=== PATIENT | female | born 1990 | race Caucasian/White ===

== ENCOUNTER → 2022-08-29 | Outpatient (CLI) | payer BC ==
--- NOTE | 2022-08-29 12:01 | XR ---
EXAMINATION TYPE: XR foot complete RT DATE OF EXAM: 08/29/2022 11:09 AM INDICATION: Patient age:Female; 32 years old; Reason for study: [id number] RT FOOT PAIN; . COMPARISON: None TECHNIQUE: The right foot was examined in the AP, oblique, and lateral projections. FINDINGS/IMPRESSION: Acute fracture through the fifth metatarsal shaft distally without displacement. There is soft tissue swelling. No additional fractures visualized.
== END | disposition home or self-care (01) ==
LOC: RADXRYALE 10:43
PROVIDERS: ATTEND Internal Medicine
DX: S92.351A Displaced fracture of fifth metatarsal bone, right foot, initial encounter for closed fracture (principal)